=== PATIENT | female | born 1935 | race Caucasian/White ===

== ENCOUNTER 2021-10-27 11:55 | Outpatient (CLI) | payer MEDICARE, OTHER, SELFPAY ==
--- NOTE | ~2021-10-27 | XR_ITS ---
XR sacrum coccyx min 2V 10/27/2021 12:25 Indication: Fitting and adjustment of neural pacemaker Procedure: 3 views of the sacrum/coccyx Comparison: No prior studies for comparison. Findings: There is a battery pack overlying the right ilium with associated neurostimulator lead whic h extends into the pelvis via left transsacral approach. There is mild-moderate lower lumbar spondylo sis. Sacral foramen are symmetric. Pelvic rings are intact. No focal lytic or blastic lesions. Impression: 1: Neural stimulator lead extends into the pelvis via left transsacral approach. Reviewed, dictated and finalized at location A. COUNCILMAN Impression: 1: Neural stimulator lead extends into the pelvis via left transsacral approach .
== END 2021-10-27 11:56 | disposition home or self-care (01) ==
PROVIDERS: PCP Internal Medicine; Visit Provider Nurse Practitioner Adult Health
DX: Z46.2 Encounter for fitting and adjustment of other devices related to nervous system and special senses (principal)
CPT/HCPCS: 72220

== ENCOUNTER 2021-12-09 10:29 | Outpatient (CLI) | payer MEDICARE, OTHER, SELFPAY ==
[2021-12-09 11:12] LABS: Anion Gap 9 mmol/L (8-16); Blood Urea Nitrogen 16 mg/dL (7-17); Calcium 9.8 mg/dL (8.4-10.2); Carbon Dioxide 29 mmol/L (22-30); Chloride 101 mmol/L (98-107); Estimated Glomerular Filt Rate > 60; Glucose 137 mg/dL (65-110); Sodium 139 mmol/L (137-145)
== END 2021-12-09 10:30 | disposition home or self-care (01) ==
LOC: ANHSURGERY 10:33
PROVIDERS: Anesthesiology; PCP Internal Medicine; Visit Provider Urology
DX: E11.9 Type 2 diabetes mellitus without complications (principal); Z01.818 Encounter for other preprocedural examination
CPT/HCPCS: 36415; 80048

== ENCOUNTER 2021-12-15 00:37 | Day surgery (SDC) | payer MEDICARE, OTHER, SELFPAY ==
[2021-12-05 15:43] VITALS: BMI 33.9
--- NOTE | 2021-12-05 15:52 | PC.NURSE ---
Report to the Outpatient Waiting Room, entrance under the green pavilion located off [facility], at time ___11:00AM____ on date __12/15/21 . OR Time: __1:00PM . - You and your visitor will be asked a series of questions to screen for COVID 19 for your protection. - A mask is required within the hospital. - Only one visitor is allowed at this time. Patient visitors will be guided where to wait when not with patient. Preoperative COVID Testing Requirements: No COVID Test needed if: (proof is required; if not received patient will have Rapid Test prior to entry) - Patient has received COVID Vaccine at least 14 days prior to procedure date or - Patient has positive COVID test result within last 90 days of surgery date. COVID Test needed if above criteria is not met If not COVID vaccinated a COVID test must be conducted within 72 hours of surgery and patient is asked to isolate self from time of testing until procedure. You will go to the [facility] for your COVID testing. The [facility] is located at the corner of [address] [facility]. You will only be called if COVID results are positive and your surgeon may reschedule your elective surgery date. Patients may have clear liquids (water, carbonated beverages, clear teas, apple juice) until 3 hours prior to surgery with a maximum of 20 ounces. - No food from midnight until time of surgery - Infants may have breast milk until 4 hours before surgery, infant formula 6 hours prior to surgery. - Children will be allowed to drink immediately following surgery. If applicable, please bring a bottle or sippy cup to assist with drinking. Juice, water, soda, and popsicles are readily available. For infants on formula, please bring formula the day of surgery. Pacifiers are allowed. Take the following medications with a SIP of water the morning of surgery: ____ESCITALOPRAM, ADVAIR DISKUS Medications to discontinue per physician VITAMINS/SUPPLEMENTS_3 DAYS PRE-OP Date to take last dose__12/12/21 Please no make-up, nail romanian, hairspray, perfume, deodorant, or body powder the day of surgery. No jewelry (including any body piercings) or valuables the day of surgery, leave them at home. Please take a shower or bath the night before, or the morning of, surgery with an antibacterial soap. Wear comfortable, loose fitting clothing. Children are encouraged to wear pajamas. - Jewelry must be removed prior to entering the operating room. Rings and piercings that are not removed may be cut off. - The hospital will not accept responsibility for valuables. - Please leave all valuables, including medications, at home the day of surgery. If you are going home after surgery, a licensed straight truck driver must drive you home. - NO public transportation without another adult. - We recommend that an adult stay with you for 24 hours following discharge. - We also recommend that you do not drive, make important decision, drink alcoholic beverages, or take any drugs that were not prescribed by your health care provider for at least 24 hours after your discharge time. For Pediatric surgeries, we recommend two adults accompany the child home (only one inside the building at this time). Follow any additional instructions given to you from your surgeon. Telephone instructions given to ___PATIENT and asked if any additional questions and then verbalized understanding. Patient advised to call surgeon office or pre surgery nurse liaison [phone] if any additional questions.
--- NOTE | 2021-12-12 11:42 | PM.IMHP ---
H&P: HPI History of Present Illness Date/Time: 12/12/21 11:42 this Flick with the InterStim device in place for her urge incontinence and fecal incontinence. The lead is then now positioned on x-ray. He is here today for revision Chief Complaint: malposition neurostimulator \ Review of Systems Review of Systems: All systems reviewed & are unremarkable except as noted in HPI and below PMFSH Social History Social History Smoking status: Former smoker Tobacco type: cigarettes Smoking end date: 05/15/95 Additional smoking assessment comments: 1 PACK/WEEK X 20 YRS Substance use: never Spiritual care concerns: No Meds Home Medications and Allergies Home Medications Medication Instructions Recorded Confirmed Type cholecalciferol (vitamin D3) 75 mcg PO DAILY 12/05/21 12/05/21 History cyanocobalamin (vitamin B-12) 1,000 mcg PO DAILY 12/05/21 12/05/21 History escitalopram oxalate 20 mg PO QAM 12/05/21 12/05/21 History fluticasone propion-salmeterol 1 inh INHALATION DAILY PRN 12/05/21 12/05/21 History [Advair Diskus] metformin 1,000 mg PO QACDINNER 12/05/21 12/05/21 History metformin 500 mg PO QAM 12/05/21 12/05/21 History pramipexole 0.125 mg PO QACDINNER 12/05/21 12/05/21 History semaglutide [Ozempic] 0.5 mg SUBCUT WEEKLY 12/05/21 12/05/21 History vit C,E-Vb-vpsac-lutein-zeaxan 2 tablet PO DAILY 12/05/21 12/05/21 History [PreserVision AREDS-2] Allergies Allergy/AdvReac Type Severity Reaction Status Date / Time ciprofloxacin [From Cipro] Allergy Rash Verified 12/05/21 15:35 penicillin G Allergy NUMBNESS, Verified 12/05/21 15:34 SWELLING IN MOUTH sulfamethoxazole Allergy Rash Verified 12/05/21 15:35 [From Bactrim] trimethoprim [From Bactrim] Allergy Rash Verified 12/05/21 15:35 Exam Narrative: no acute distress normal breathing all right x3 Assessment and Plan Assessment and plan (1) Unspecified complication of internal prosthetic device, implant and graft, initial encounter: Code(s): T85.9XXA - Unspecified complication of internal prosthetic device, implant and graft, initial encounter Status: Acute (2) Urge incontinence: Code(s): N39.41 - Urge incontinence Status: Acute (3) Fecal incontinence: Code(s): R15.9 - Full incontinence of feces Status: Acute Additional Plan removal and replacement/revision of InterStim system
[2021-12-15] VITALS (8 sets, daily range): BP systolic 116–152; BP diastolic 55–81; PULSE 63–85; RESP 12–20; TEMP 36.2–36.3; O2SAT 94–96
--- NOTE | ~2021-12-15 | XR_ITS ---
EXAMINATION: FLUORO NEUROSTIM INSERT < 1HR DATE: 12/15/2021 12:03 INDICATION: Revision of neurostimulator TECHNIQUE: Frontal and lateral fluoroscopic images of the sacrum were obtained. The amount of fluoros copy time used during this procedure was 2.8 minutes. COMPARISON: None. FINDINGS: Distal tip of an Interstim lead extends from posterior to anterior through a right-sided sa cral neural foramen. IMPRESSION: 1. Interstim lead extends through a right-sided sacral neural foramen. See procedure note for further detail. Reviewed, dictated and finalized at location A. OLOGY LABORATORY AIDE IMPRESSION: 1. Interstim lead extends through a right-sided sacral neural foramen. See proc edure note for further detail.
--- NOTE | 2021-12-15 07:21 | WPDHPUPDATE1 ---
History and Physical Update Update Date/Time: 12/15/21 07:21 History and Physical has been reviewed, including an updated exam of the patient. There are NO changes in the patient's condition. Risks, benefits, and alternatives have been discussed and questions answered. Patient agrees to proceed with procedure.
[2021-12-15] MEDS: LACTATED RINGERS 1,000 ML 30 ML IV CONT (10:12)
[2021-12-15 10:18] LABS: Glucose Point of Care 139 mg/dl (65-105)
--- NOTE | 2021-12-15 10:58 | WPDANESEPPF ---
Anes - Initial Pre Proc Eval Procedure: Operation Date: 12/15/21 11:30 Proposed Procedures p Revision of Neurostimulator - Sean Meneses MD Date/Time: 12/15/21 10:58 Surgeon: Sean Meneses MD Pre Op Diagnosis: complications due to implant,sensory urge inconti Patient Data Age: 86 Gender: F Height: 1.64 m Weight: 95 kg Last Vital Signs Temp 36.2 C L 12/15/21 09:47 Pulse 77 12/15/21 09:47 Resp 16 12/15/21 09:47 BP 152/81 H 12/15/21 09:47 Pulse Ox 96 12/15/21 09:47 Allergies Allergy/AdvReac Type Severity Reaction Status Date / Time ciprofloxacin [From Cipro] Allergy Intermediate Rash Verified 12/15/21 10:00 penicillin G Allergy Intermediate NUMBNESS, Verified 12/15/21 10:00 SWELLING IN MOUTH sulfamethoxazole Allergy Intermediate Rash Verified 12/15/21 10:00 [From Bactrim] trimethoprim [From Bactrim] Allergy Intermediate Rash Verified 12/15/21 10:00 Home Medications Medication Instructions Recorded Confirmed Type cholecalciferol (vitamin D3) 75 mcg PO DAILY 12/05/21 12/15/21 History cyanocobalamin (vitamin B-12) 1,000 mcg PO DAILY 12/05/21 12/15/21 History escitalopram oxalate 20 mg PO QAM 12/05/21 12/15/21 History fluticasone propion-salmeterol 1 inh INHALATION DAILY PRN 12/05/21 12/15/21 History [Advair Diskus] metformin 1,000 mg PO QACDINNER 12/05/21 12/15/21 History metformin 500 mg PO QAM 12/05/21 12/15/21 History pramipexole 0.125 mg PO QACDINNER 12/05/21 12/15/21 History semaglutide [Ozempic] 0.5 mg SUBCUT WEEKLY 12/05/21 12/05/21 History vit C,L-Jm-jmxau-lutein-zeaxan 2 tablet PO DAILY 12/05/21 12/15/21 History [PreserVision AREDS-2] Laboratory Tests 12/15/21 10:15 POC Capillary Glucose 139 mg/dl H mg/dl (65-105) Patient hx anesthesia problems: none Family hx anesthesia problems: none Results Review: All pre-operative results and documents have been reviewed as part of the pre-operative evaluation. [facility] Past Medical History Medical History Anxiety Arthritis Diabetes Social History Social History Smoking status: Former smoker Tobacco type: cigarettes Smoking end date: 05/15/95 Additional smoking assessment comments: 1 PACK/WEEK X 20 YRS Substance use: never Living arrangements: alone Spiritual care concerns: No Anes - Eval Final PreProcedure Day of Procedure 12/15/21 10:58 Patient weight: obese Heart: regular rate and rhythm Lungs: clear to auscultation Airway: Mallampati scale class III Neurological: alert and oriented Last oral intake: >/= 8 hours ASA classification: III Emergent: no Anesthetic plan: proceed Anesthesia type and monitoring: general GIVS and standard monitoring Results Review: All pre-operative results and documents have been reviewed as part of the pre-operative evaluation. Informed Consent: The patient's anesthetic plan and its attendant risks and benefits were discussed with the patient/family/POA. Questions were solicited and answers provided to the satisfaction of the patient/family/POA.
[2021-12-15] MEDS: ceFAZolin 2 GM/D5W 50 ML 2 GM/50 ML BAG IVPB (11:10)
[2021-12-15] MEDS: BUPIVACAINE/EPINEPHRINE 0.25% 10 ML VIAL 20 ML INFILTRATE (11:38)
--- NOTE | 2021-12-15 12:24 | W.PM.PROC2 ---
Procedure Note - Detailed Date of Procedure 12/15/21 Pre-op Diagnosis complications due to implant,sensory urge incontinence, fecal incontinence Post-op Diagnosis same Procedure Performed Removal and replacement of InterStim system Surgeon Sean Meneses MD Anesthesia MAC Indications This is a woman InterStim device in place. Was placed in September of 2021. She has had lack of efficacy. X-ray shows the device to be malpositioned. She is here today for a full revision. She understands risks of bleeding, infection, lack of efficacy. She agrees to proceed Findings Successful placement of a new system Description of Procedure She was correctly identified. Informed consent obtained. From the operating room. She was given MAC anesthesia. She was prepped and draped in sterile fashion. She was given appropriate perioperative antibiotics. A time-out performed. I anesthetized the skin over the pulse generator. I anesthetized the skin. I incised the skin. I located the pulse generator. I removed its entirety. I then removed the lead as well with a [place] pull I then used fluoroscopy to identify my sacral landmarks in the AP and lateral position. I anesthetized the skin. I entered the S3 foramen on both the right and left. I monitored the needle fluoroscopy. I stimulated the needle and got appropriate responses on the right S3 placement. I made a skin pamela. I placed the stylet and the lead introducer sheath. I then placed the plate my lead. I again stimulated the lead and got appropriate responses at a low threshold. I did a skipping incision. I then tunneled the lead towards the pocket. The battery was programmed. He was placed in the pocket. Impedances were checked and found to be normal. I irrigated all wounds. I closed the subcutaneous tissues with 2-0 Vicryl. Skin with 4-0 Vicryl. Glue was applied. She was awakened transferred to PACU in stable condition. Implants InterStim system Estimated Blood Loss 5 Drains No Packing No Pathology none sent Complications No immediate complications Condition stable Disposition PACU
[2021-12-15 12:30] LABS: Glucose Point of Care 132 mg/dl (65-105)
[2021-12-15] MEDS: fentaNYL CITRATE INJ (*CRX) 100 MCG/2 ML VIAL 25 MCG IV PUSH ×3 (12:40→12:58)
[2021-12-15] MEDS: oxyCODONE HCL (*CRX) 5 MG TAB IR PO (13:20)
== END 2021-12-15 14:00 | disposition home or self-care (01) ==
PROVIDERS: PCP Internal Medicine; Visit Provider Urology
PROC: (CPT 64585; principal; 2021-12-15 11:30)
DX: T85.122A Displacement of implanted electronic neurostimulator of spinal cord electrode (lead), initial encounter (principal); Y83.8 Other surgical procedures as the cause of abnormal reaction of the patient, or of later complication, without mention of misadventure at the time of the procedure; N39.41 Urge incontinence; R15.9 Full incontinence of feces; E11.9 Type 2 diabetes mellitus without complications; Z87.891 Personal history of nicotine dependence; Z79.51 Long term (current) use of inhaled steroids; Z79.84 Long term (current) use of oral hypoglycemic drugs; Z79.899 Other long term (current) drug therapy; F41.9 Anxiety disorder, unspecified; E66.9 Obesity, unspecified; Z68.35 Body mass index [BMI] 35.0-35.9, adult
CPT/HCPCS: 64585; 64595; 82948; A9270; C1778; J0690; J2250; J2405; J2704; J3010; J7120